=== PATIENT | female | born 1955 | race Caucasian/White ===

== ENCOUNTER → 2016-05-23 | Outpatient (CLI) | payer OTHER ==
--- NOTE | 2016-05-23 17:29 | MA ---
Bilateral Digital Screening Mammography Clinical History: 61-year-old female with no indicated family history of breast cancer, who presents for routine annual mammographic screening. Technique: Digital CC and MLO views of each breast are compared with previous studies dated April 05, 2015, September 08, 2013, June 03, 2012, April 17, 2011, and April 08, 2010. Additionally, the exam is CAD checked. Breast Density: Type B (scattered fibroglandular densities). CAD Evaluation: Negative. Findings: There is a mild residual fibroglandular pattern. There is no focal neodensity, or interim architectural change. There are no suspicious clustered microcalcifications. Benign-appearing axil david lymph nodes are seen. Impression: Negative mammography. BI-RADS Category 1. Recommendation: Routine annual mammographic screening. [facility] will send a result letter to the patient. Negative mammography should not preclude additional work up of a clinically suspicious finding. The patient's information is entered into a reminder system with a target due date for her next mammo gram. [id number]:[email or web address]
== END ==
LOC: FIMAGING 13:23
DX: Z12.31 Encounter for screening mammogram for malignant neoplasm of breast (principal)
CPT/HCPCS: G0202

== ENCOUNTER → 2017-07-23 | Outpatient (CLI) | payer OTHER | LOC: FIMAGING 09:05 | PROVIDERS: ATTEND Internal Medicine | DX: Z12.31 Encounter for screening mammogram for malignant neoplasm of breast (principal) ==

== ENCOUNTER → 2018-10-03 | Outpatient (CLI) | payer OTHER | LOC: FIMAGING 16:01 ==